=== PATIENT | male | born 1985 | race Caucasian/White ===

== ENCOUNTER 2020-12-26 21:11 | Emergency (ER) | payer SELFPAY ==
[~2020-12-26] VITALS: Ht 170.2 cm; Wt 100.0 kg
[2020-12-26] MEDS ORDERED: IBUPROFEN 600MG TABLET PO ONE (22:15)
[2020-12-26] MEDS ORDERED: ONDANSETRON 4MG ODT PO ONE (22:15)
[2020-12-26] MEDS ORDERED: ONDA4TAB11 PO (22:41)
[2020-12-26 22:50] VITALS: BP 133/88
[2020-12-26] MEDS ORDERED: ALBU6.7H9 INH (23:11)
== END 2020-12-26 22:50 | disposition home or self-care (01) ==
LOC: ER 21:45
DX: U07.1 COVID-19 (principal); R50.9 Fever, unspecified; B34.8 Other viral infections of unspecified site
CPT/HCPCS: 99283; Q0162